=== PATIENT | male | born 1970 | race African-American/Black ===

== ENCOUNTER 2020-04-21 05:58 | Emergency (ER) | payer BC ==
[~2020-04-21] VITALS: Ht 170.2 cm; Wt 79.4 kg
[2020-04-21 05:58] VITALS: BP 132/72
[2020-04-21] MEDS ORDERED: ACETAMINOPHEN ES 500 MG TABLET PO ONE (06:30)
== END 2020-04-21 06:59 | disposition home or self-care (01) ==
LOC: ER 06:01
DX: J20.9 Acute bronchitis, unspecified (principal); Z20.828 Contact with and (suspected) exposure to other viral communicable diseases
CPT/HCPCS: 99283; C9803; U0003